=== PATIENT | male | born 1990 | race African-American/Black ===

== ENCOUNTER 2024-08-16 23:28 | Emergency (ER) | payer SELFPAY | END 2024-08-17 02:28 | disposition home or self-care (01) | LOC: MW.ED 23:28 | DX: S60.021A Contusion of right index finger without damage to nail, initial encounter (principal); F17.210 Nicotine dependence, cigarettes, uncomplicated; W23.0XXA Caught, crushed, jammed, or pinched between moving objects, initial encounter | CPT/HCPCS: 11740; 73140-26-F6; 73140-F6; 99283-25 ==